=== PATIENT | male | born 1985 | race Hispanic/Latino ===

== ENCOUNTER 2018-07-21 18:16 | Inpatient (IN) | payer SELFPAY ==
[2018-07-21] MEDS ORDERED: Morphine 4 MG/ML VIAL SLOW IVP PRN ×2 (19:47→20:14)
[2018-07-21] MEDS ORDERED: Ketorolac Tromethamine 30 MG/ML VIAL IVP PRN (19:48)
[2018-07-21] MEDS ORDERED: Ondansetron PF 4 MG/2 ML Vial IVP PRN (19:50)
[2018-07-21] MEDS ORDERED: Acetaminophen 325 MG TAB PO PRN (19:50)
[2018-07-21] MEDS ORDERED: Ondansetron ODT 4 MG TAB SL PRN (19:50)
[2018-07-21] MEDS ORDERED: Meperidine HCl/PF 25 MG/ML VIAL IM PRN (20:14)
[2018-07-21] MEDS ORDERED: Promethazine HCl 25 MG/ML VIAL IM PRN (20:15)
[2018-07-21] MEDS: HYDROcodone/Acetaminophen 7.5/325 mg Tablet PO PRN (20:43)
[2018-07-21] MEDS: D5 1/2 NS w/20 mEq KCL 1,000 ML IV SCH (20:46)
[2018-07-21] MEDS: Gentamicin Sulfate 80 MG in Premix Bag 1 BAG IVPB SCH (22:47)
[2018-07-21 22:59] VITALS: BMI 30.8
[2018-07-22] MEDS: HYDROcodone/Acetaminophen 7.5/325 mg Tablet PO PRN ×4 (00:51→22:06)
[2018-07-22] MEDS: Gentamicin Sulfate 80 MG in Premix Bag 1 BAG IVPB SCH ×3 (05:10→22:04)
[2018-07-22] MEDS: D5 1/2 NS w/20 mEq KCL 1,000 ML IV SCH (05:10)
[2018-07-22] MEDS ORDERED: Famotidine/PF 20 mg/2ml Vial ONE (13:28)
[2018-07-22] MEDS ORDERED: Fentanyl 100 MCG/2 ML VIAL ONE ×3 (13:29→20:04)
[2018-07-22] MEDS ORDERED: Bacitracin Zinc Ointment 30 gm TUBE ONE (13:30)
[2018-07-22] MEDS ORDERED: Bupivacaine PF 0.5% 30 ML VIAL ONE (13:30)
[2018-07-22] MEDS ORDERED: PROPOFOL 200 MG/20 ML VIAL ONE (13:46)
[2018-07-22] MEDS ORDERED: Ketorolac Tromethamine 30 MG/ML VIAL ONE (13:46)
[2018-07-22] MEDS ORDERED: Ondansetron PF 4 MG/2 ML Vial ONE (13:46)
[2018-07-22] MEDS ORDERED: Lidocaine 1% PF 5 ML VIAL ONE (13:46)
[2018-07-22] MEDS ORDERED: Dexamethasone 20 MG/5 ML VIAL ONE (13:46)
[2018-07-22] MEDS ORDERED: Midazolam HCl 2 mg/2 ml Vial ONE (13:59)
[2018-07-22] MEDS ORDERED: HYDROmorphone 2 MG/ML VIAL ONE (16:34)
[2018-07-22] MEDS ORDERED: Ondansetron HCl/PF 4 MG/2 ML Vial IVP PRN (19:18)
[2018-07-22] MEDS ORDERED: Promethazine HCl 25 MG/ML VIAL SLOW IVP PRN (19:18)
[2018-07-22] MEDS ORDERED: Promethazine HCl 25 MG/ML VIAL IM PRN ×2 (19:18→21:19)
[2018-07-22] MEDS ORDERED: HYDROmorphone 2 MG/ML VIAL SLOW IVP PRN (19:18)
[2018-07-22] MEDS ORDERED: Meperidine HCl/PF 25 MG/ML VIAL SLOW IVP PRN (19:18)
[2018-07-22] MEDS ORDERED: Meperidine HCl/PF 25 MG/ML VIAL IM PRN (21:19)
[2018-07-22] MEDS: Albuterol Sulfate 2.5 mg/3 ml Neb NEB SCH (21:48)
[2018-07-23] MEDS: Ketorolac Tromethamine 30 MG/ML VIAL IVP SCH ×2 (00:10→06:22)
[2018-07-23] MEDS: Albuterol Sulfate 2.5 mg/3 ml Neb NEB SCH ×3 (01:45→11:42)
[2018-07-23] MEDS: Gentamicin Sulfate 80 MG in Premix Bag 1 BAG IVPB SCH (05:01)
[2018-07-23 08:05] VITALS: TEMP 98.8
[2018-07-23] MEDS ORDERED: Aspirin 325 mg Enteric Coated Tablet PO SCH (09:00)
[2018-07-23] MEDS: HYDROcodone/Acetaminophen 7.5/325 mg Tablet PO PRN (10:30)
--- NOTE | 2018-07-23 11:22 | DIS ---
DATE OF ADMISSION: 07/21/2018 DATE OF DISCHARGE: 07/23/2018 ADMISSION DIAGNOSES: 1. Right small finger flexor digitorum profundus laceration zone 1 with right small finger A4 sangita laceration and right small finger 5.0 cm wound and right small finger digital ulnar nerve laceration. 2. Right ring finger 5.0 cm wound with ulnar digital nerve laceration as well as right ring finger flexor digitorum profundus and superficialis laceration zone 2. 3. Right middle finger 3.5 cm laceration, no neurovascular structure involvement. 4. Right index finger 3.5 cm laceration, no neurovascular involvement. DISCHARGE DIAGNOSES: 1. Right small finger flexor digitorum profundus laceration zone 1 with right small finger A4 sangita laceration and right small finger 5.0 cm wound and right small finger digital ulnar nerve laceration. 2. Right ring finger 5.0 cm wound with ulnar digital nerve laceration as well as right ring finger flexor digitorum profundus and superficialis laceration zone 2. 3. Right middle finger 3.5 cm laceration, no neurovascular structure involvement. 4. Right index finger 3.5 cm laceration, no neurovascular involvement. HOSPITAL COURSE: The patient was admitted because of these open wounds and the tendon injuries. After short admission preop and IV antibiotics, he underwent at the hospital, debridement of all wounds, closure of all wounds, and then the following differential finger procedure. He underwent neuroplasty with closure of wounds at the index finger and long finger with no neurovascular structures on inspiration were cut. He also, however, with extensive surgery at the ring finger and small finger as follows: Ring finger: Flexor digitorum profundus superficialis repair after retrieval from the palm using Jimenez-Amy technique; digital nerve neuroplasty with microscopic ulnar nerve repair; closure and debridement of the wound. Right small finger underwent debridement and closure of the wound along with repair of zone 1 flexor digitorum profundus laceration and A4 sangita laceration along with microscopic ulnar nerve digital nerve repair. The patient tolerated the procedures well, had been placed in a dorsal block splint to begin early control before therapy. On postop day #1, he had no complications and undergone appropriate postop antibiotics and was discharged. Discharge diagnosis same as the admission diagnosis as above. DISCHARGE PLANNING: The patient will have a regular diet. We given Shelby for pain, Toradol for pain and swelling and inflammation, and we will return to clinic to initiate early therapy within 72 hours. His diet is regular. Job ID: [id number]
[2018-07-23 11:51] VITALS: BP 127/69
--- NOTE | 2018-07-24 12:01 | OP ---
DATE OF PROCEDURE: 07/22/2018 PREOPERATIVE DIAGNOSES: 1. Right small finger zone 1 flexor tendon laceration with possible digital artery nerve laceration to right small finger. 2. Right ring finger zone 2 with possible complete flexor laceration with digital artery nerve laceration. 3. A 3.5 cm wound right long finger/middle finger. 4. A 3.5 cm wound, right index finger. POSTOPERATIVE DIAGNOSES/FINDINGS: 1. At the small finger, a 5-cm wound with tendon involvement as follows: a. Laceration of A4 sangita. b. Laceration of ulnar digital nerve. c. Laceration of flexor digitorum profundus at the level of the sangita. 2. At the right ring finger: a. Zone 2 complete flexor digitorum profundus and superficialis laceration just distal to the chiasm. b. A3 sangita laceration. c. Ulnar digital nerve laceration. 3. At the middle finger, a 5.5 cm wound with neuroplasty revealing no nerve damage. 4. At the index finger, 5.5 cm wound with neuroplasty revealing no nerve damage. PROCEDURE PERFORMED: 1. Right index finger: a. Debridement of wound. b. Closure of 3.5 cm wound. c. Digital neuroplasty under magnification x2. 2. At the middle finger: a. Debridement of 3.5 cm wound. b. Closure of 4.5 cm wound. c. Digital neuroplasty under magnification x2. 3. At the ring finger: a. A 5.5 cm laceration debridement. b. A 5.5 cm laceration closure. c. Microscopic digital nerve neuroplasty. d. Microscopic digital nerve ulnar side repair. e. Flexor digitorum profundus complete repair zone 2. f. Flexor digitorum superficialis complete repair zone 2. 4. Finally, at the small finger: a. A 5.5 cm wound debridement. b. A 5.5 cm wound closure. c. Radial and ulnar digital nerve neuroplasty under magnification. d. Microscopic ulnar digital nerve repair. e. Zone 1 flexor tendon repair, complex nerve profundus. f. Repair of A4 sangita. ANESTHESIA: General LMA technique augmented by 20 mL of 0.5% Marcaine block. COMPLICATIONS: None. DEBRIDEMENT TECHNIQUES: As follows: 1. Use of an excisional technique. 2. Use of irrigation bulb syringe, antibiotics inside, tenotomy scissors, [place] blade, Adson's, and a curette. 3. There was no gross infection, was down to, but not including bone, as it did go deep to the flexor tendons and the neurovascular bundles, and there was no gross contamination. DESCRIPTION OF PROCEDURE: After successful general LMA technique, the limb was prepped and draped. Time-out done appropriately. We visually inspected the wound, then noticed that the ring finger had complete extension at rest and the small finger had had attitude of old PIP flexion indicative of possible flexor digitorum profundus laceration, at the ring finger. We then exsanguinated the limb, inflated tourniquet. All were transverse lacerations with the small finger laceration being actually just proximal to the DIP joint, the ring finger being at the level of the PIP joint crease, and the middle finger and index finger being at the level of the MP joint crease. We then extended all lacerations in a zigzag Natalio-type fashion is when we discovered that the small finger had digital nerve laceration on the ulnar aspect, A4 sangita laceration, and a laceration of the flexor digitorum profundus with approximately 1 cm of tendon still left distal to the laceration. At the small finger, neurovascular bundle on the radial side was intact as it was on the ring finger once we did the dissection. We also saw, however, the neurovascular bundle to include the ulnar nerve under microscopic evaluation was cut at the ring finger and it was a zone 2 complete flexor digitorum laceration, profundus superficialis has retracted into palm. They also had retract into the palm at the small finger FDP. The same microscopic inspection of the digital nerves via neuroplasty on the long/middle and index finger showed no digital nerve laceration, so there was no need for repair. We first approached the small finger. Then, I found the flexor tendon be proximal to the A1 sangita, then made a zigzag incision proximal to this, found the tendon, placed the Prolene suture in a Natalio-type fashion, and then pulled it into the wound and pulled the system out to the level of the DIP joint. We then used a Tony-Amy technique 6-strand with loop suture, 4-0 oversewn with 6-0 Prolene. This gave excellent apposition, tendon was smooth, and after this, we realized that there was 50% of the width of the A4 sangita still intact, and so we repaired this back to its remnant on the ulnar side deep to the neurovascular bundle with 4-0 Prolene in a [id number] fashion. We then performed the same tendon. We then extended the incision proximally on the ring finger, found proximal to the A4 sangita, both the FDP and FDS, and then using the same suture technique with a 22-gauge to pull them into the wound. We did this, placed the chiasm FDS chiasms were repaired, the FDS first, again using the loop suture technique, oversewn with 6-0 Prolene and then the same loop suture technique for the FDP. Excellent tendon apposition with good glide. We deflated the tourniquet, achieved hemostasis, and then closed the index finger and long finger wounds, and then, after tourniquet had been down for an appropriate amount of time, we reinflated it for 27 minutes in order to do the microscopic repair of the digital nerve with 9-0 nylon at the trifurcation on the small finger and at the middle of the base of the proximal phalanx in the ring finger. We released the tourniquet, had excellent capillary refill of 1 second, and pink digits, we obtained hemostasis, closed all incision with interrupted 4-0 nylon in a simple pattern, placed a bulky dressing on the wound after given 20 mL of 0.5% Marcaine injection with a block splint. At PIP joint, approximately -30 degrees extension, small finger and ring finger then demonstrated the appropriate tension for tendon repair in appropriate zones. Job ID: [id number]
== END 2018-07-23 12:34 | disposition home or self-care (01) | DRG 514 ==
LOC: SURG A 19:30
PROVIDERS: ADMIT Orthopaedic Surgery Hand Surgery; ATTEND Orthopaedic Surgery Hand Surgery
PROC: 0LQ70ZZ Repair Right Hand Tendon, Open Approach (ICD-10-PCS; principal; 2018-07-22)
PROC: 0LQ70ZZ Repair Right Hand Tendon, Open Approach (ICD-10-PCS; 2018-07-22)
PROC: 0LQ70ZZ Repair Right Hand Tendon, Open Approach (ICD-10-PCS; 2018-07-22)
PROC: 0LQ70ZZ Repair Right Hand Tendon, Open Approach (ICD-10-PCS; 2018-07-22)
PROC: 01Q40ZZ Repair Ulnar Nerve, Open Approach (ICD-10-PCS; 2018-07-22)
PROC: 01Q40ZZ Repair Ulnar Nerve, Open Approach (ICD-10-PCS; 2018-07-22)
PROC: 0HQFXZZ Repair Right Hand Skin, External Approach (ICD-10-PCS; 2018-07-22)
PROC: 0HQFXZZ Repair Right Hand Skin, External Approach (ICD-10-PCS; 2018-07-22)
DX: S66.126A Laceration of flexor muscle, fascia and tendon of right little finger at wrist and hand level, initial encounter (principal); S66.124A Laceration of flexor muscle, fascia and tendon of right ring finger at wrist and hand level, initial encounter; S61.212A Laceration without foreign body of right middle finger without damage to nail, initial encounter; S61.210A Laceration without foreign body of right index finger without damage to nail, initial encounter; S64.01XA Injury of ulnar nerve at wrist and hand level of right arm, initial encounter; W26.0XXA Contact with knife, initial encounter
CPT/HCPCS: 94640; 94760; J0131; J0690; J1100; J1170; J1580; J1885; J2001; J2250; J2405; J2550; J2704; J3010; J7611; S0020; S0028

== ENCOUNTER 2018-10-16 02:06 | Outpatient (CLI) | payer BC ==
[2018-10-16 11:31] LABS: Bilirubin Negative (Negative); Blood, Urine Small (Negative); Clarity CLEAR (Clear); Glucose, Urine (Dipstick) Negative (Negative); Leukocyte Negative (Negative); Nitrite Negative (Negative); Protein, Urine (Dipstick) Negative (Neg-Trace); Urobilinogen 0.2 mg/dL (0.2-1.0)
[2018-10-16 11:32] LABS: Bacteria/HPF None Seen HPF (None Seen); Hyaline Casts/LPF 0-3 HYALINE CAST LPF (0-3 Hyaline); Squamous Epithelial None Seen HPF (0-3); WBC/HPF None Seen HPF (0-3)
[2018-10-16 11:37] LABS: #Basophils 0.1 thou/uL (0.0-0.2); #Eosinphils 0.1 thou/uL (0.0-0.7); #Lymphocytes 1.8 thou/uL (1.20-3.40); #Monocytes 0.5 thou/uL (0.11-0.59); #Neutrophils 4.8 thou/uL (1.40-6.50); %Basophils 0.9 % (0.0-1.0); %Eosinophils 0.9 % (0.0-10.0); %Lymphocytes 24.5 % (21.0-51.0); %Monocytes 7.4 % (0.0-10.0); %Neutrophils 66.3 % (42.0-75.0); Hemoglobin 13.8 g/dL (14.0-18.0); Mean Corpuscular Volume 88.2 fL (78.0-98.0); Mean Platelet Volume 8.5 fL (7.4-10.4); Platelet Count 256 thou/uL (130-400); RBC Distribution Width 11.5 % (11.5-14.5); White Blood Cell (WBC) Count 7.3 thou/uL (4.8-10.8)
[2018-10-16 12:00] LABS: Anion Gap 12 mmol/L (10-20); BUN (Urea Nitrogen) 12 mg/dL (8.9-20.6); Calc. Creatinine Clearance 0 mL/min (70-130); Carbon Dioxide 26 mmol/L (22-29); Chloride 104 mmol/L (98-107); Estimated GFR-MDRD Greater than 90; Glucose 104 mg/dL (70-105); Potassium 3.8 mmol/L (3.5-5.1); Sodium 138 mmol/L (136-145)
== END 2018-10-16 02:07 | disposition home or self-care (01) ==
LOC: LABBT 02:06
PROVIDERS: ATTEND Orthopaedic Surgery Hand Surgery
DX: Z01.812 Encounter for preprocedural laboratory examination (principal); M67.843 Other specified disorders of tendon, right hand
CPT/HCPCS: 80048; 81001; 85025

== ENCOUNTER 2018-10-17 07:46 | Day surgery (SDC) | payer BC ==
[2018-10-16 10:53] VITALS: BMI 29.9
[2018-10-17] MEDS ORDERED: Fentanyl 100 MCG/2 ML VIAL ONE ×2 (10:36→12:38)
[2018-10-17] MEDS ORDERED: Midazolam HCl 2 mg/2 ml Vial ONE (10:36)
[2018-10-17] MEDS ORDERED: Bupivacaine PF 0.5% 30 ML VIAL ONE (10:41)
[2018-10-17] MEDS ORDERED: Betamet Acet/Betamet Na Ph 30 MG/5 ML VIAL ONE (10:41)
[2018-10-17] MEDS ORDERED: Bacitracin Zinc Ointment 30 gm TUBE ONE (10:41)
[2018-10-17] MEDS ORDERED: Ketorolac Tromethamine 30 MG/ML VIAL ONE (14:16)
[2018-10-17] MEDS ORDERED: HYDROcodone/Acetaminophen 5/325 mg Tablet ONE (15:03)
[2018-10-17] MEDS ORDERED: PHENYLEPHRINE-NS 100 MCG/ML 10 ML SYRINGE ONE (15:13)
[2018-10-17] MEDS ORDERED: PROPOFOL 200 MG/20 ML VIAL ONE (15:13)
[2018-10-17] MEDS ORDERED: Dexamethasone 20 MG/5 ML VIAL ONE (15:13)
[2018-10-17] MEDS ORDERED: Lidocaine 1% PF 5 ML VIAL ONE (15:13)
[2018-10-17] MEDS ORDERED: Ondansetron PF 4 MG/2 ML Vial ONE (15:13)
--- NOTE | 2018-10-18 10:24 | OP ---
DATE OF PROCEDURE: 10/17/2018 PREOPERATIVE DIAGNOSES: Right small finger flexor tendon adhesions after flexor digitorum superficialis repair and then right ring finger flexor tendon adhesions after flexor tendon repairs approximately 90 days ago. FINDINGS: Marked adhesions, small finger with flexor digitorum superficialis and flexor digitorum pollicis intact. Repair was a zone 1 and at the ring finger flexor digitorum superficialis and flexor digitorum pollicis intact with marked flexor tendon adhesions. Pulleys intact A1, A2 and A4 on both sites with the ring finger being at zone 2 repair. PROCEDURES PERFORMED: 1. Small finger digital nerve neuroplasty x2. 2. Flexor tendon tenolysis. 3. A1 sangita release. At the ring finger: 1. Digital nerve neuroplasty. 2. Flexor tenolysis. 3. Small FDP tenotomy to separate it from where it was adhered to the FDS near the chiasm. 4. A1 sangita release. TOURNIQUET TIME: 92 minutes. ESTIMATED BLOOD LOSS: 20 mL. INJECTABLES: A total of 20 mL of 0.5% Marcaine, 10 at each digit. INDICATIONS: The patient is now almost 4 months after a zone 2 ring finger and zone 1 small finger flexor tendon repairs after a sharp laceration. They were down to the bone with a nice reduced fracture on the ring finger. It was at the ring finger we found the various adhesions especially to the bone. DESCRIPTION OF PROCEDURE: After successful general endotracheal anesthesia, the limb was prepped and draped. We approached the small finger first and used a previous incision and extended 1 cm distal and 1 cm proximal initially. We carried through skin and subcutaneous tissue, performed the digital nerve neuroplasty under loupe magnification. Once we had done this neurovascular bundle, we then released the scar from the skin in the region of the A4 sangita and then was able to lift the scar off the repair. There were marked adhesions of the flexor tendon to bone, to the sangita, but the distal insertion was intact. We then performed a tenolysis with combination of [place] blade, tenotomy scissors all the way back to the A2 sangita. We then made an incision proximal to the A1 sangita, released the A1 sangita, and the tendon was pristine at this point. We then pulled on the tendon in the palm and was able to obtain about 25 degrees independent DIP flexion and brought the DIP to within 5-6 mm of the palm We then placed a moist sponge in this wound and then turned attention to the ring finger. At the ring finger, we extended the Natalio incision all the way out to the level of the PIP joint and then 5 mm distal to that in almost a midlateral fashion, used a Luna incision to extend it back to the level of the A1 sangita. The patient had marked adhesions to the skin including covering the A2 sangita leaving the A2 sangita not been injured. We then did a digital nerve neuroplasty neurovascular bundle and the gutters and protected them throughout the remainder portion. We then began at the A2 sangita, lifted the scar off the distal 1/2, lifted the scar off the tendon bed using a combination of a knife, 11 blade, a [place] blade, and then we used tenotomy scissors. Once we found the blue sutures of the repair, we were painstakingly slowing on separation to make sure we did not damage the repair. Once we lifted off approximately a 3 cm long area of scar between the skin and the tendon, we then discovered that the repair was intact, but there was some adherence of the flexor digitorum profundus to the flexor digitorum superficialis on the radial side of the repair and so we performed the tenotomy mostly of the flexor digitorum superficialis to separate this. We then lifted the flexor tendon from the bone where it was adhered to a previous fracture, lifted it up around each sangita, and then made sure it was intact by first pulling on the repairs proximal to their repair site, but distal to the A2 sangita and it was independent FDP flexion here indicative of 20 degrees independent DIP flexion. We then extended the incision approximately 1 cm more, so we had 2 cm proximal to the A1 sangita. We released the A1 sangita, did the same pull and achieved the same amount of FDP flexion. We were able from that point to pull the ring finger tip to within 1 cm of the palm We released the tourniquet, obtained hemostasis. Placed Celestone 4 mL over the ring finger, 1 over the small finger and closed the skin with interrupted 4-0 nylon. Circulation was intact. We were able to achieve extension as well as -10 degrees on both digits in the finger that the PIP previously was at -30 active and passive at the ring and small finger. He was splinted with a dorsal block splint and left the operating room without evidence of anesthetic or operative complication. Job ID: [id number]
== END 2018-10-17 15:30 | disposition home or self-care (01) ==
LOC: SDC 07:46
PROVIDERS: ATTEND Orthopaedic Surgery Hand Surgery
PROC: 01Q40ZZ Repair Ulnar Nerve, Open Approach (ICD-10-PCS; principal; 2018-10-17)
PROC: 0L870ZZ Division of Right Hand Tendon, Open Approach (ICD-10-PCS; principal; 2018-10-17)
DX: M24.641 Ankylosis, right hand (principal); M77.9 Enthesopathy, unspecified; Z98.890 Other specified postprocedural states
CPT/HCPCS: 88304; J0690; J0702; J1100; J1885; J2001; J2250; J2405; J2704; J3010; S0020